=== PATIENT | female | born 1935 | race Caucasian/White ===

== ENCOUNTER → 2017-08-31 | Outpatient (CLI) | payer MEDICARE, MEDICAID ==
[~2017-08-31] MED LIST: ASCO-339 PO; ATEN50TA PO; DOCU-138 PO; MULT-1146 PO; OMEP20CA10 PO; OXYB5TAB11 PO; ROSU5TAB; ROSU5TAB PO; SOLI5TAB
== END | disposition home or self-care (01) ==
LOC: RAD 11:21
PROVIDERS: ATTEND Neurological Surgery
DX: M54.2 Cervicalgia (principal); Z98.890 Other specified postprocedural states
CPT/HCPCS: 72052